=== PATIENT | male | born 1960 | race African-American/Black ===

== ENCOUNTER 2018-09-23 05:34 | Inpatient (IN) ==
[2018-09-23] MEDS ORDERED: VANCOMYCIN 1,000 MG VIAL ONE (05:56)
[2018-09-23] MEDS ORDERED: ceFAZolin 1,000 MG VIAL ONE (05:56)
[2018-09-23] MEDS ORDERED: ceFAZolin 1,000 MG in SYRINGE 1 EACH IV ONE (06:00)
[2018-09-23] MEDS ORDERED: BUPIVACAINE SPINAL 0.75% 2 ML AMP SPINAL ONE (06:07)
[2018-09-23] MEDS ORDERED: EPINEPHrine 1 MG/ML VIAL ONE (06:07)
[2018-09-23] MEDS ORDERED: ROPIVACAINE 0.5% 30 ML VIAL ONE (06:07)
[2018-09-23] MEDS: LACTATED RINGERS 1,000 ML IV SCH (06:30)
[2018-09-23] MEDS ORDERED: TRANEXAMIC ACID 1,000 MG/10 ML VIAL ONE (06:36)
[2018-09-23] MEDS ORDERED: BISACODYL 10 MG SUPP RECTAL PRN (07:18)
[2018-09-23] MEDS ORDERED: PROMETHAZINE 25 MG/1 ML VIAL IM PRN (07:18)
[2018-09-23] MEDS ORDERED: MORPHINE 4 MG/1 ML VIAL IV PRN (07:18)
[2018-09-23] MEDS ORDERED: TEMAZEPAM 7.5 MG CAPSULE PO PRN (07:18)
[2018-09-23] MEDS ORDERED: LACTULOSE 20 GM/30 ML UDCUP PO PRN (07:18)
[2018-09-23] MEDS ORDERED: ONDANSETRON 4 MG/2 ML VIAL IV PRN (07:18)
[2018-09-23] MEDS ORDERED: MAGNESIUM HYDROXIDE SUSP 30 ML UDCUP PO PRN (07:18)
[2018-09-23] MEDS ORDERED: MIDAZOLAM 2 MG/2 ML VIAL ONE (09:10)
[2018-09-23] MEDS ORDERED: PROPOFOL 200 MG/20 ML VIAL IV ONE (09:10)
[2018-09-23] MEDS ORDERED: fentaNYL 100 MCG/2 ML VIAL ONE (09:10)
[2018-09-23] MEDS ORDERED: KETAMINE 500 MG/10 ML VIAL ONE (09:11)
[2018-09-23] MEDS ORDERED: ACETAMINOPHEN 1,000 MG/100 ML VIAL IV ONE (09:11)
[2018-09-23] MEDS ORDERED: PHENYLEPHRINE 1 MG/10 ML SYRINGE IV ONE (09:11)
[2018-09-23] MEDS ORDERED: SODIUM CHLORIDE 0.9% 100 ML IV ONE (09:11)
[2018-09-23] MEDS ORDERED: LACTATED RINGERS 1,000 ML IV ONE (09:11)
[2018-09-23] MEDS ORDERED: SODIUM CHLORIDE 0.9% 500 ML IV ONE (09:11)
[2018-09-23] MEDS ORDERED: VANCOMYCIN INJ 1,000 MG in SODIUM CHLORIDE 0.9% 250 ML IV ONE (10:00)
[2018-09-23] MEDS: amLODIPine 10 MG TABLET PO SCH (11:23)
[2018-09-23] MEDS: LOSARTAN 50 MG TABLET PO SCH (11:23)
[2018-09-23] MEDS: hydroCHLOROthiazide 12.5 MG CAPSULE PO SCH (11:23)
[2018-09-23] MEDS: DOCUSATE SODIUM 100 MG CAPSULE PO SCH ×2 (11:38→21:12)
[2018-09-23] MEDS: ceFAZolin 2,000 MG in SYRINGE 1 EACH IV SCH ×2 (13:36→21:13)
[2018-09-23] MEDS ORDERED: hydrALAZINE 20 MG/1 ML VIAL IV PRN (16:00)
[2018-09-23] MEDS: FONDAPARINUX 2.5 MG/0.5 ML SYRINGE SUBCUT SCH (17:31)
[2018-09-24 05:47] LABS: Basophils % 0.3 % (0.0-0.8); Eosinophils % 0.2 % (0.00-10.9); Hematocrit 40.4 VOL% (42.0-52.0); Hemoglobin 12.8 GM/DL (14.0-18.0); Immature Granulocytes % 0.4 %; Immature Granulocytes Absolute 0.05 #; Lymphocytes % 8.6 % (21.2-54.2); Mean Corpuscular HGB Conc 31.7 GM/DL (32-36); Monocytes % 10.5 % (1.7-12.7); Platelet Count 215 T/CUMM (130-400); Red Blood Count 4.49 MC/CUMM (3.8-5.5); Red Cell Distribution Width 13.2 % (9.3-17.3); White Blood Count 11.9 T/CUMM (4-12)
[2018-09-24 05:58] LABS: Calcium 8.8 MG/DL (8.5-10.1); Osmolality,Calculated 276.7 MOS/KG (273-304)
[2018-09-24] MEDS ORDERED: ACETAMINOPHEN 325 MG TABLET PO PRN (07:19)
[2018-09-24] MEDS: hydroCHLOROthiazide 12.5 MG CAPSULE PO SCH (09:48)
[2018-09-24] MEDS: LOSARTAN 50 MG TABLET PO SCH (09:48)
[2018-09-24] MEDS: DOCUSATE SODIUM 100 MG CAPSULE PO SCH ×2 (09:49→20:47)
[2018-09-24] MEDS: amLODIPine 10 MG TABLET PO SCH (09:49)
[2018-09-24] MEDS: LACTATED RINGERS 1,000 ML IV SCH (11:42)
[2018-09-24] MEDS: diphenhydrAMINE CAP 25 MG CAPSULE PO PRN (16:26)
[2018-09-24] MEDS: FONDAPARINUX 2.5 MG/0.5 ML SYRINGE SUBCUT SCH (17:46)
[2018-09-25 01:51] LABS: Apearance,Urine CLEAR (Clear); Bacteria,Urine Occasional /HPF (Few); Bilirubin,Urine Negative (Negative); Blood, Urine Moderate mg/dL (Negative); Glucose,Urine (UA) Negative (Negative); Ketones,Urine 5 mg/dL (Negative); Mucus,Urine Occasional /LPF (Occasional); Nitrite,Urine Negative (Negative); Protein,Urine Negative; RBC,Urine 17 /HPF (0-4); Squamous Epithelial Cell,Urine Occasional /HPF (0-10); Urine Color Yellow (Yellow); Urine Specific Gravity 1.017 (1.001-1.035); Urine Urobilinogen < 2.0 EU/DL (0.2-1.0); WBC,Urine 1 /HPF (0-6)
[2018-09-25 06:10] LABS: Basophils % 0.2 % (0.0-0.8); Eosinophils % 0.1 % (0.00-10.9); Hematocrit 39.1 VOL% (42.0-52.0); Hemoglobin 12.8 GM/DL (14.0-18.0); Immature Granulocytes % 0.3 %; Immature Granulocytes Absolute 0.04 #; Lymphocytes # 1.2 10*3/uL (1.4-4.0); Lymphocytes % 9.8 % (21.2-54.2); Mean Corpuscular HGB Conc 32.7 GM/DL (32-36); Mean Corpuscular Volume 88.3 FL (87-102); Mean Platelet Volume 11.1 FL (9.6-12.0); Monocytes % 10.7 % (1.7-12.7); Neutrophils % 78.9 % (38.7-73.9); Platelet Count 204 T/CUMM (130-400); Red Blood Count 4.43 MC/CUMM (3.8-5.5); Red Cell Distribution Width 13.2 % (9.3-17.3); White Blood Count 12.6 T/CUMM (4-12)
[2018-09-25 06:56] LABS: Bilirubin,Total 1.1 MG/DL (0.2-1.0); Calcium 8.9 MG/DL (8.5-10.1); Osmolality,Calculated 277.5 MOS/KG (273-304); Thyroid Stimulating Hormone 1.62 uIU/ml (0.358-3.74); Total Protein 7.3 G/DL (6.4-8.3)
[2018-09-25] MEDS: DOCUSATE SODIUM 100 MG CAPSULE PO SCH ×2 (09:07→21:50)
[2018-09-25] MEDS: LOSARTAN 50 MG TABLET PO SCH (09:07)
[2018-09-25] MEDS: amLODIPine 10 MG TABLET PO SCH (09:07)
[2018-09-25] MEDS: hydroCHLOROthiazide 12.5 MG CAPSULE PO SCH (09:07)
[2018-09-25] MEDS: FONDAPARINUX 2.5 MG/0.5 ML SYRINGE SUBCUT SCH (17:29)
[2018-09-25] MEDS: diphenhydrAMINE CAP 25 MG CAPSULE PO PRN (19:54)
[2018-09-26] MEDS: hydroCHLOROthiazide 12.5 MG CAPSULE PO SCH (09:37)
[2018-09-26] MEDS: amLODIPine 10 MG TABLET PO SCH (09:37)
[2018-09-26] MEDS: LOSARTAN 50 MG TABLET PO SCH (09:37)
[2018-09-26] MEDS: DOCUSATE SODIUM 100 MG CAPSULE PO SCH ×2 (09:37→20:57)
[2018-09-26] MEDS: FONDAPARINUX 2.5 MG/0.5 ML SYRINGE SUBCUT SCH (17:29)
[2018-09-26] MEDS: diphenhydrAMINE CAP 25 MG CAPSULE PO PRN (17:30)
[2018-09-27] MEDS: DOCUSATE SODIUM 100 MG CAPSULE PO SCH (09:33)
[2018-09-27] MEDS: LOSARTAN 50 MG TABLET PO SCH (10:59)
[2018-09-27] MEDS: amLODIPine 10 MG TABLET PO SCH (10:59)
[2018-09-27] MEDS: hydroCHLOROthiazide 12.5 MG CAPSULE PO SCH (10:59)
[2018-09-27 12:39] VITALS: BP 132/72
== END 2018-09-27 14:40 | disposition home or self-care (01) | DRG 470 ==
LOC: N.SDSINP 05:34 → N.OR 05:34 → N.SDSINP 07:18 → N.3E 09:53
PROVIDERS: ADMIT Orthopaedic Surgery; ATTEND Orthopaedic Surgery